=== PATIENT | female | born 1985 | race Caucasian/White ===

== ENCOUNTER 2017-07-20 01:32 | Emergency (ER) | payer MEDICAID ==
[~2017-07-20] VITALS: Ht 157.5 cm; Wt 77.1 kg
[2017-07-20 01:53] VITALS: Ht 157.5 cm; Wt 77.1 kg
[2017-07-20 04:20] VITALS: BP 116/71
== END 2017-07-20 04:15 | disposition home or self-care (01) ==
LOC: ED 01:32
DX: J20.9 Acute bronchitis, unspecified (principal); R10.9 Unspecified abdominal pain; M54.5 Low back pain
CPT/HCPCS: J1885; Q0092